=== PATIENT | female | born 1945 | race Caucasian/White ===

== ENCOUNTER 2019-11-10 17:31 | Inpatient (IN) ==
[2019-11-10] MEDS ORDERED: ASPIRIN CHEW 324 MG PO STA (17:56)
[2019-11-10] MEDS: NITROGLYCERIN SL 0.4 MG/TAB TAB SL PRN ×3 (18:04→18:35)
--- NOTE | 2019-11-10 18:05 | Emergency Department Note ---
History of Present Illness General Chief complaint: Chest Pain Stated complaint: CHEST PAIN Time Seen by Provider: 11/10/19 17:38 Source: patient Mode of arrival: ambulatory Limitations: no limitations History of Present Illness Maximum Pain Intensity: 6 This patient comes in as described above. She was placed in room B6. The nurses came and asked me to see her as she was having chest pain. The pain has gone down significantly is 5 out of 10 at present. She is had chest pain off and on for months although is been significantly worse since Tuesday night. She had a very bad 10 out of 10 chest pain her blood pressure was 194/122 at the time she took a clonidine an hour later blood pressure is 94/54 and she felt better. When states she felt washed out but otherwise good. She was at her doctor's office and [facility] with UTI type symptoms today and will start on antibiotic. Around 330 she was shopping and developed chest pain 9 out of 10 at 415 she took a clonidine she also took an Ativan. She was getting better when she drove here and almost incoming but started having chest pain again. She does feel short of breath. The pain feels like it is in her chest but radiates into throat ears and back. She does have shortness of breath with this as well and her symptoms seem to be worse with walking and better if she rests. No fever or COVID symptoms or exposure. No history of cardiac disease. No trauma or injury. She is not any blood thinners. She did take aspirin 160 mg prior to arrival Home Medications Home Medications Medication Instructions Recorded Confirmed Type clonidine HCl 0.1 mg PO BID 05/22/19 11/10/19 History hydrocodone-acetaminophen 0.5 - 1 tab PO BID PRN 05/22/19 11/10/19 History levothyroxine 25 mcg PO QAM 05/22/19 11/10/19 History lorazepam 1 mg PO TID PRN 05/22/19 11/10/19 History acyclovir 400 mg PO BID PRN 11/10/19 11/10/19 History azelastine 2 spray INTRANASAL BID 11/10/19 11/10/19 History ciprofloxacin HCl 250 mg PO BID 11/10/19 11/10/19 History ergocalciferol (vitamin D2) 50,000 unit PO 2XWK 11/10/19 11/10/19 History Allergies Allergy/AdvReac Type Severity Reaction Status Date / Time Iodinated Contrast Media Allergy Mild Hives Verified 11/10/19 18:25 iodine Allergy Mild Hives Verified 11/10/19 18:25 Past Med/Surg History Medical History History of Raynaud's syndrome Surgical History No pertinent past surgical history Social History Preferred Language: Sri Lankan Feels Safe at Home: Yes Smoking Status: Never smoker Review of Systems A total of 10 systems reviewed and were otherwise negative Physical Exam Vital Signs Vital Signs - 24 hr 11/10/19 17:32 11/10/19 18:00 11/10/19 18:10 Temperature 36.8 C Temperature Source Oral Pulse Rate 67 70 79 Pulse Rate from SpO2 Sensor 70 79 Respiratory Rate 18 18 18 Respiratory Effort / Characteristics Non-Labored Respiratory Depth Normal Blood Pressure 197/76 H 140/80 145/94 H Blood Pressure Mean 116 102 120 Pulse Oximetry 97 98 96 Oxygen Delivery Method Room Air Fraction of Inspired Oxygen Sepsis Recent Fever Within 48 Hours No Sepsis Action Taken by Nursing No Action Required 11/10/19 18:16 11/10/19 18:20 11/10/19 18:25 Temperature Temperature Source Pulse Rate 76 84 Pulse Rate from SpO2 Sensor 76 85 Respiratory Rate 19 18 Respiratory Effort / Characteristics Respiratory Depth Blood Pressure 129/76 119/67 Blood Pressure Mean 90 91 Pulse Oximetry 94 94 90 Oxygen Delivery Method Room Air Fraction of Inspired Oxygen 94 Sepsis Recent Fever Within 48 Hours Sepsis Action Taken by Nursing 11/10/19 18:30 11/10/19 18:35 11/10/19 18:40 Temperature Temperature Source Pulse Rate 77 76 84 Pulse Rate from SpO2 Sensor 77 75 84 Respiratory Rate 20 20 18 Respiratory Effort / Characteristics Respiratory Depth Blood Pressure 139/70 123/78 113/67 Blood Pressure Mean 83 104 81 Pulse Oximetry 93 92 89 L Oxygen Delivery Method Fraction of Inspired Oxygen Sepsis Recent Fever Within 48 Hours Sepsis Action Taken by Nursing 11/10/19 18:45 11/10/19 18:51 11/10/19 19:05 Temperature Temperature Source Pulse Rate 77 76 72 Pulse Rate from SpO2 Sensor 77 77 71 Respiratory Rate 18 18 18 Respiratory Effort / Characteristics Respiratory Depth Blood Pressure 125/68 141/77 H 136/83 Blood Pressure Mean 80 92 98 Pulse Oximetry 89 L 91 94 Oxygen Delivery Method Fraction of Inspired Oxygen Sepsis Recent Fever Within 48 Hours Sepsis Action Taken by Nursing 11/10/19 19:10 Temperature Temperature Source Pulse Rate 73 Pulse Rate from SpO2 Sensor 73 Respiratory Rate 18 Respiratory Effort / Characteristics Respiratory Depth Blood Pressure 123/66 Blood Pressure Mean 73 Pulse Oximetry 91 Oxygen Delivery Method Fraction of Inspired Oxygen Sepsis Recent Fever Within 48 Hours Sepsis Action Taken by Nursing General: Well developed well nourished older female who appears in no acute distress, breathing comfortably on room air. Normal speech HEENT: Normal cephalic atraumatic. Pupils are equal round and reactive to light. Extraocular movements are intact. Oropharynx is pink with moist mucous membranes. No swelling of the mouth lips or tongue. Neck: Supple with a midline trachea. No meningeal signs or stiffness, no JVD or bruits. No Stridor. Chest: Clear to auscultation bilaterally. No wheezes or rhonchi. No increased work of breathing. Not reproducibly tender Heart: Regular rate and rhythm without murmurs or gallops. Abdomen: Soft nontender, nondistended without rebound guarding or rigidity. Extremities: No cyanosis clubbing or edema. No calf tenderness or assymetry Spine/Back. Non tender to palpation. No CVA tenderness Skin: Good turgor without rashes. Neurologic exam: Cranial nerves two through 12 are intact. Motor and sensation are intact and symmetrical throughout. Course Administered Medications Nitroglycerin (Nitrostat) 0.4 mg SL UD PRN PRN Reason: Chest Pain Stop: 12/10/19 17:55 Last Admin: 11/10/19 18:35 Dose: 0.4 mg Documented by: [id number] Admin: 11/10/19 18:23 Dose: 0.4 mg Documented by: [id number] Admin: 11/10/19 18:04 Dose: 0.4 mg Documented by: [id number] Discontinued Medications Aspirin (Aspirin) 161 mg PO NOW STA Stop: 11/10/19 17:57 Last Admin: 11/10/19 18:05 Dose: 161 mg Documented by: [id number] Nitroglycerin (Nitro-Bid 2%) 1 inch EXT NOW ONE Stop: 11/10/19 19:18 Last Admin: 06/13/20 19:40 Dose: 1 inch Documented by: [id number] Potassium Chloride (Klor-Con M20) 40 meq PO NOW STA Stop: 11/10/19 19:36 Last Admin: 11/10/19 19:45 Dose: 40 meq Documented by: [id number] Critical Care Time Critical Care Time: Yes Total Critical Care Time: 30 Due to the patient's chest pain with EKG changes, need for frequent reassessment, multiple medications as well as repeat EKG and consultation, have personally spent greater than 30 minutes of critical care time in the direct management of this patient. This includes bedside care, interpretation of diagnostic studies, and testing, discussion with consultants, patient, and family members, and other required patient management activities. This 30 minutes is in excess of all separately billable procedures. Medical Decision Making Differential Diagnosis Acute coronary syndrome, arrhythmia, PE, musculoskeletal, anxiety, LA, sepsis, electrolyte or metabolic abnormality, aortic pathology Medical Records Attestation: I reviewed the patient's medical records. Home Medications Current Medication List: was personally reviewed by me Laboratory Data Attestation: I reviewed the patient's lab results. Result diagrams: 11/10/19 17:55 11/10/19 17:55 Lab Results 11/10/19 11/10/19 11/10/19 Range/Units 17:55 17:55 17:55 WBC 14.68 H (4.8-10.8) K/uL RBC 4.83 (4.2-5.4) M/uL Hgb 14.4 (12.0-16.0) g/dL Hct 42.5 (37-47) % MCV 88.0 (80-100) fL MCH 29.8 (25-34) pg MCHC 33.9 (32-36) g/dL RDW Std Deviation 45.6 (36.4-46.3) fL RDW Coeff of Neyda 14.2 (11.5-14.5) % Plt Count 228 (130-400) K/uL MPV 10.5 H (7.4-10.4) fL Immature Gran % (Auto) 0.3 % Neut % (Auto) 77.6 % Lymph % (Auto) 17.1 % [place] % (Auto) 4.6 % Eos % (Auto) 0.3 % Baso % (Auto) 0.1 % Immature Gran # (Auto) 0.05 H (0.00-0.02) K/uL Neut # (Auto) 11.38 H (1.4-6.5) K/uL Lymph # (Auto) 2.51 (1.2-3.4) K/uL [place] # (Auto) 0.67 H (0.11-0.59) K/uL Eos # (Auto) 0.05 (0-0.5) K/uL Baso # (Auto) 0.02 (0-0.2) K/uL PT 10.9 (9.0-12.0) Seconds INR 1.0 (0.9-1.1) APTT 27.6 (21.0-31.0) Seconds PTT Ratio 1.0 Sodium 141 (136-145) mmol/L Potassium 3.0 L (3.5-5.1) mmol/L Chloride 106 (98-107) mmol/L Carbon Dioxide 30 (21-32) mmol/L Anion Gap 5.0 (3-11) BUN 9 (7-18) mg/dl Creatinine 0.82 (0.6-1.2) mg/dl Est Cr Clr Drug Dosing Not Reportable Est GFR ( Amer) 81.7 Est GFR (Non-Af Amer) 70.5 BUN/Creatinine Ratio 10.7 (10-20) Glucose 95 (70-99) mg/dl Calcium 9.4 (8.5-10.1) mg/dl Magnesium (1.8-2.4) mg/dl Total Bilirubin 0.5 (0.2-1) mg/dl AST 18 (15-37) U/L ALT 27 (12-78) U/L Alkaline Phosphatase 119 H (45-117) U/L Troponin I < 0.015 (0-0.045) ng/ml Total Protein 8.6 H (6.4-8.2) gm/dl Albumin 4.1 (3.4-5.0) gm/dl Globulin 4.5 H (2.5-4.0) gm/dl Albumin/Globulin Ratio 0.9 (0.9-2) Lipase 88 (73-393) U/L 11/10/19 Range/Units 17:55 WBC (4.8-10.8) K/uL RBC (4.2-5.4) M/uL Hgb (12.0-16.0) g/dL Hct (37-47) % MCV (80-100) fL MCH (25-34) pg MCHC (32-36) g/dL RDW Std Deviation (36.4-46.3) fL RDW Coeff of Neyda (11.5-14.5) % Plt Count (130-400) K/uL MPV (7.4-10.4) fL Immature Gran % (Auto) % Neut % (Auto) % Lymph % (Auto) % [place] % (Auto) % Eos % (Auto) % Baso % (Auto) % Immature Gran # (Auto) (0.00-0.02) K/uL Neut # (Auto) (1.4-6.5) K/uL Lymph # (Auto) (1.2-3.4) K/uL [place] # (Auto) (0.11-0.59) K/uL Eos # (Auto) (0-0.5) K/uL Baso # (Auto) (0-0.2) K/uL PT (9.0-12.0) Seconds INR (0.9-1.1) APTT (21.0-31.0) Seconds PTT Ratio Sodium (136-145) mmol/L Potassium (3.5-5.1) mmol/L Chloride (98-107) mmol/L Carbon Dioxide (21-32) mmol/L Anion Gap (3-11) BUN (7-18) mg/dl Creatinine (0.6-1.2) mg/dl Est Cr Clr Drug Dosing Est GFR ( Amer) Est GFR (Non-Af Amer) BUN/Creatinine Ratio (10-20) Glucose (70-99) mg/dl Calcium (8.5-10.1) mg/dl Magnesium 2.0 (1.8-2.4) mg/dl Total Bilirubin (0.2-1) mg/dl AST (15-37) U/L ALT (12-78) U/L Alkaline Phosphatase (45-117) U/L Troponin I (0-0.045) ng/ml Total Protein (6.4-8.2) gm/dl Albumin (3.4-5.0) gm/dl Globulin (2.5-4.0) gm/dl Albumin/Globulin Ratio (0.9-2) Lipase (73-393) U/L Imaging Data Attestation: I personally reviewed and interpreted this imaging study as follows: My Impression: Chest x-ray, no acute infiltrate, failure, pneumothorax seen Radiologist's Impression: No acute findings on chest x-ray ECG Data Attestation: I personally reviewed and interpreted this ECG as follows: Indication: + chest pain Rate (beats per minute): 75 Rhythm: + normal sinus ECG Intervals/blocks: + Normal QRS, + Normal QT and + Normal MD ECG [place]: + Normal ECG ST segments: + ST depression (Anterolateral) ECG Findings: no Q waves and no PACs Comparison ECG Date: no prior available Blood Pressure Blood Pressure Findings: Elevated blood pressure MDM Narrative This patient comes in as scribed above she is been having intermittent chest pain. Upon her initial EKG she does have some ST depression mostly in V3 through V6. In light of this I went and saw her promptly. Her symptoms have been getting better. I did order additional aspirin to complete a 324 mg total. I did order nitro trial nitroglycerin as well. A full cardiac work-up was done including blood work EKGs and chest x-ray. I did attempt to obtain an EKG for comparison but there were no old EKGs in our computer system. The patient was given a sublingual nitro and her pressure did come down to the 130s and her pain came down to 3 out of 10 she seemed to tolerate it well and was given a second nitroglycerin. He also obtained a second EKG to ensure that there is no ev olution of her symptoms. Her second EKG shows resolution of ST depression but she does have T wave inversions in V2 and V3. She was feeling significantly better and did receive a third nitroglycerin as her pain had only come down to 2 out of 10. She has no acute electrolyte or metabolic abnormalities. Chest x- ray was unremarkable does not show any congestive heart failure, pneumonia, or pneumothorax. After third nitroglycerin her pain was minimal up to about a 1 out of 10. She was placed on nitroglycerin 1 inch topical. her vital signs are stable. Her troponin was negative initially. I talked to her at length and I am concerned that she has multiple cardiac risk factors and does have the dynamic EKG changes and I do think needs to come into the hospital for further cardiac evaluation and work-up. She does agree. I have consulted Dr. Morrell in the [facility] team to see her in the ER for these measures. Continuous cardiac monitoring. Due to the patient's complaint of chest pain, she was placed on a continuous youth nutritional monitor. Her initial rhythm was normal sinus rhythm with a rate of 70. Impression & Plan Chest pain, Angina pectoris, unstable, Acute electrocardiogram changes, HTN (hypertension) Discharge Plan Visit Data Chief Complaint: Chest Pain Stated Complaint: CHEST PAIN ED Provider: Dada Dong Discharge Problem: Chest pain, Angina pectoris, unstable, Acute electrocardiogram changes, HTN (hypertension) Forms Stand Alone Forms: [facility] [employer] Prescriptions Prescriptions: No Action clonidine HCl 0.1 mg tablet 0.1 mg PO BID RF: 0 hydrocodone-acetaminophen 10-325 mg tablet 0.5 - 1 tab PO BID PRN (Reason: Pain) RF: 0 levothyroxine 25 mcg tablet 25 mcg PO QAM RF: 0 lorazepam 1 mg tablet 1 mg PO TID PRN (Reason: Anxiety) RF: 0 ciprofloxacin HCl 250 mg tablet 250 mg PO BID RF: 0 acyclovir 400 mg tablet 400 mg PO BID PRN (Reason: Cold Sore(s)) RF: 0 ergocalciferol (vitamin D2) 1,250 mcg (50,000 unit) capsule 50,000 unit PO 2XWK RF: 0 azelastine 137 mcg (0.1 %) Aerosol,Exline 2 spray INTRANASAL BID RF: 0 Discharge Problem: Chest pain Qualifiers: Chest pain type: precordial pain Qualified Code(s): R07.2 - Precordial pain HTN (hypertension) Qualifiers: Hypertension type: unspecified Qualified Code(s): I10 - Essential (primary) hypertension
[2019-11-10 18:09] LABS: Basophils # (auto) 0.02 K/uL (0-0.2); Basophils % (auto) 0.1 %; Eosinophils # (auto) 0.05 K/uL (0-0.5); Eosinophils % (auto) 0.3 %; Hematocrit (blood only) 42.5 % (37-47); Hemoglobin 14.4 g/dL (12.0-16.0); Immature Granulocytes # (auto) 0.05 K/uL (0.00-0.02); Immature Granulocytes % (auto) 0.3 %; Lymphocytes # (auto) 2.51 K/uL (1.2-3.4); Lymphocytes % (auto) 17.1 %; Mean Corpuscular Hemoglobin 29.8 pg (25-34); Mean Corpuscular Hgb Conc 33.9 g/dL (32-36); Mean Platelet Volume 10.5 fL (7.4-10.4); Monocytes # (auto) 0.67 K/uL (0.11-0.59); Monocytes % (auto) 4.6 %; Neutrophils # (auto) 11.38 K/uL (1.4-6.5); Neutrophils % (auto) 77.6 %; Platelet Count 228 K/uL (130-400); RDW Coefficient of Variation 14.2 % (11.5-14.5); RDW Standard Deviation 45.6 fL (36.4-46.3); Red Blood Count 4.83 M/uL (4.2-5.4); White Blood Count 14.68 K/uL (4.8-10.8)
[2019-11-10 18:25] LABS: Partial Thromboplastin Time 27.6 Seconds (21.0-31.0); Prothrombin Time 10.9 Seconds (9.0-12.0)
--- NOTE | 2019-11-10 18:25 | XRay Report ---
XR chest 1V portable CLINICAL HISTORY: Chest Pain COMPARISON STUDY: Chest radiograph May 19, 2015. FINDINGS: Lung volumes are normal. Lungs are clear. There is no pneumothorax or pleural effusion. Car diac size is normal. Mediastinal contours are normal. There is no evidence for pulmonary edema. IMPRESSION: No acute cardiopulmonary findings. ACT 112: Negative or not required by law. Electronically signed by: Damien Palomino M.D. 11/10/2019 6:24 PM
[2019-11-10 18:26] LABS: Alanine Aminotransferase 27 U/L (12-78); Albumin Level 4.1 gm/dl (3.4-5.0); Aspartate Aminotransferase 18 U/L (15-37); BUN Creatinine Ratio 10.7 (10-20); Blood Urea Nitrogen 9 mg/dl (7-18); Calcium 9.4 mg/dl (8.5-10.1); Carbon Dioxide 30 mmol/L (21-32); Chloride 106 mmol/L (98-107); Est GFR (African American) 81.7; Est GFR (Non-African American) 70.5; Glucose 95 mg/dl (70-99); Lipase 88 U/L (73-393); Sodium 141 mmol/L (136-145)
[2019-11-10 18:31] LABS: Albumin Globulin Ratio 0.9 (0.9-2); Alkaline Phosphatase 119 U/L (45-117); Bilirubin,Total 0.5 mg/dl (0.2-1); Globulin 4.5 gm/dl (2.5-4.0); Total Protein 8.6 gm/dl (6.4-8.2); Troponin I < 0.015 ng/ml (0-0.045)
[2019-11-10] MEDS ORDERED: NITROGLYCERIN 2% OINTMENT 30GM TUBE EXT ONE (19:17)
[2019-11-10] MEDS ORDERED: POTASSIUM CHLORIDE 20 MEQ TABCR PO STA ×2 (19:35→22:10)
[2019-11-10] MEDS ORDERED: HYDROCODONE/ACETAMINOPHEN 10/325 TAB PO PRN (21:26)
[2019-11-10] MEDS ORDERED: cloNIDine HCL 0.1 MG TAB PO SCH (21:26)
--- NOTE | 2019-11-10 21:32 | History & Physical Report ---
Date of Service November 10, 2019 Assessment & Plan (1) Chest pain: Pt is a 74yo female with a PMHx of HTN, HLD currently not on statin, hypothyroidism and fibromyalgia who presents with unstable angina. Unstable Angina -Pt presented with recurrent chest pain, 10/10 with associated chest tightness responsive to nitro -EKG in ED with ST depressions, trops negative -pt with significant fam hx, personal Hx of HTN, HLD -lipid panel and hgbA1c pending with AM labs -will order baseline echo, consider stress echo -cardiology consult -s/p aspirin 325mg administration in the ED -continue home clonidine, consider transitioning a beta-keeley such as metoprolol succinate or carvedilol -continue nitropaste scheduled with BP parameters -started on heparin standard concentration, not to exceed 5000 bolus HTN -BPs significantly elevated on ED arrival -continue home clonidine 0.1mg PO BID scheduled -consider transitioning to a beta-keeley such as metoprolol succinate or carvedilol as above HLD -Pt states she has been on many statins, all discontinued due to severe leg cramps -willing to try once more -notes significant improvement with rosuvastatin in the past UTI -continue home cipro 250mg po BID -pt states this was prescribed day of admission and she has not yet taken her first dose GERD/Hx of ulcers -Pepcid 40mg PO BID Fibromyalgia -continue home Platter 0.5 tab BID as needed Hypothyroidism -continue home levothyroxine 25mcg po qAM Seasonal Allergies -continue home azelastine nasal spray FEN/GI: Heart healthy DVT prophylaxis: On heparin CODE STATUS: Full Dispo: PCU/Tele Admission and Anticipated Discharge Date Admission Date: November 10, 2019 History of Present Illness Primary Care Provider: Ector Brownlee MD Pt is a 74yo female with a PMHx of HTN, HLD currently not on statin, hypothyroidism and fibromyalgia who presents with 10/10 chest pain responsive to nitro administration. States this has been happening for the past week, off and on. Describes the pain as both pressure-like and sharp. Radiates up her neck to her jaw and ears and to her back. Some SOB/chest tightness. No associated N/V or diaphoresis. Had an episode of significant chest pain 5 days ago after carrying grocery bags up to the second floor where she lives. Noted a BP of 194/112, took some clonidine and it decreased to 94/54. Called her PCP and wa able to get an appt with cutting machine fixer Dr. Hood for November 25 for a stress test. Also, notes today 8/10 pain while walking after a doctors appointment for a UTI, at [facility]. She then sat in her car, ate chicken, sushi and drank iced tea but it did not help. She then took a Platter, a dose of Ativan, 2 baby aspirins and her clonidine, all with no relief. So she came to the ED where the pain increased in intensity once more on arrival. Associated with a headache. FAM Hx: -HTN in brother, aunts and uncles espeically on maternal side -CA in mother and brothers. Mother had open heart surgery at age 52. -Diabetes in 2 brothers SH: -smoked for about 10 years early in her life, 1/2ppd at her heaviest. Stopped in 1973. social alcohol use, no recreational drug use. Rarely exercises and diet "is not the best. No kitchen for 6 years". Allergies Allergy/AdvReac Type Severity Reaction Status Date / Time Iodinated Contrast Media Allergy Mild Hives Verified 11/10/19 18:25 iodine Allergy Mild Hives Verified 11/10/19 18:25 Home Medications Home Medications Medication Instructions Recorded Confirmed Type clonidine HCl 0.1 mg PO BID 05/22/19 11/10/19 History hydrocodone-acetaminophen 0.5 - 1 tab PO BID PRN 05/22/19 11/10/19 History levothyroxine 25 mcg PO QAM 05/22/19 11/10/19 History lorazepam 1 mg PO TID PRN 05/22/19 11/10/19 History acyclovir 400 mg PO BID PRN 11/10/19 11/10/19 History azelastine 2 spray INTRANASAL BID 11/10/19 11/10/19 History ciprofloxacin HCl 250 mg PO BID 11/10/19 11/10/19 History ergocalciferol (vitamin D2) 50,000 unit PO 2XWK 11/10/19 11/10/19 History Past Med/Surg History Medical History History of Raynaud's syndrome Surgical History No pertinent past surgical history Social History Preferred Language: Belarusian Beliefs That Will Affect Care: None Current Living Situation: Alone Feels Safe at Home: Yes Safety Concerns: Feels Safe At This Time Smoking Status: Former smoker Do You Dip or Chew Tobacco: No ; Hx Alcohol Use: Yes Hx Substance Use: No Review of Systems Constitutional: + fatigue; no fever, no chills and no sweats Eyes: no worsening vision Ear, Nose, Mouth, Throat: + ear pain; no tinnitus, no dizziness, no nasal congestion and no sore throat Respiratory: no cough and no dyspnea Cardiovascular: no chest pain, no dyspnea, no palpitations, no lightheadedness and no syncope Gastrointestinal: no nausea, no vomiting, no constipation and no diarrhea/loose stools Genitourinary: + dysuria (not currently but earlier in the day); no hematuria Musculoskeletal: no body aches Integumentary: no rash Neurologic: + headache(s); no tingling, no numbness and no confusion Psychiatric: no confusion Endocrine: + fatigue Physical Exam Physical Exam: General: Alert, oriented. No acute distress Skin: No noted rashes or bruises Psych: Appropriate mood and affect Neuro: No gross deficits HEENT: NC/AT Chest: Nontender to palpation. CV: RRR, Normal s1, s2. No murmurs appreciated Resp: Breath sounds clear bilaterally, no increased effort of breathing. No crackles/rhonchi/rales. Abdomen: BS+. Soft, nontender, nondistended. No guarding. No organomegaly appreciated. Extremities: No edema in lower extremities bilaterally. Results & Data Results & Data ([facility]) Vital Signs (Past 12 Hours) Vital Signs Temp Pulse Resp BP Pulse Ox 11/10/19 21:01 68 19 107/81 93 11/10/19 20:15 66 19 146/76 H 96 11/10/19 19:45 70 18 120/72 94 11/10/19 19:30 70 19 139/85 94 11/10/19 19:25 74 18 124/74 94 11/10/19 19:10 73 18 123/66 91 11/10/19 19:05 72 18 136/83 94 11/10/19 18:51 76 18 141/77 H 91 11/10/19 18:45 77 18 125/68 89 L 11/10/19 18:40 84 18 113/67 89 L 11/10/19 18:35 76 20 123/78 92 11/10/19 18:30 77 20 139/70 93 11/10/19 18:25 84 18 119/67 90 11/10/19 18:20 76 19 129/76 94 11/10/19 18:16 94 11/10/19 18:10 79 18 145/94 H 96 11/10/19 18:00 70 18 140/80 98 11/10/19 17:32 36.8 C 67 18 197/76 H 97 Supervising Physician Co-Signing Physician Notes Attending addendum: I have physically seen this patient, have supervised the medical residents activities, and agree with the H&P unless as otherwise noted. Assessment and Plan: Unstable angina/hypertension Telemetry admission Multiple risk factors: Family history, hypertension, hyperlipidemia, obesity, sedentary lifestyle. Aspirin 81 mg daily, given loading dose of 325 in the ED. Change clonidine to metoprolol tartrate 25 mg p.o. twice daily. Nitropaste 1 inch anterior chest wall every 6 hours Heparin drip standard concentration with bolus not to exceed 5000 Took a fasting lipid panel and hemoglobin A1c Cardiology consult UTI- noted in outpatient setting, was to begin treatment today. Continue Cipro. GERD/history of peptic ulcer disease- Placed on Pepcid. Remaining orders and notations as noted. Resident Activity Tracking Resident Involvement: Resident Care Provided Care Provided: Adult Hospital Medicine (1) Chest pain Chest pain type: precordial pain Qualified Code(s): R07.2 - Precordial pain
[2019-11-10] MEDS ORDERED: Heparin IV Low Dose WITH Bolus IV SCH (21:56)
[2019-11-10] MEDS ORDERED: HEPARIN SODIUM/DEXTROSE 25,000 UNITS/500 ML BAG IV SCH (22:00)
[2019-11-10] MEDS ORDERED: HEPARIN IV BOLUS 4,000 UNITS in SYRINGE 0 ML IV ONE (22:15)
[2019-11-10] MEDS: CIPROFLOXACIN 250 MG TAB PO SCH (22:38)
[2019-11-10] MEDS: METOPROLOL TARTRATE 25 MG TAB PO SCH (23:01)
[2019-11-10] MEDS: NITROGLYCERIN 2% OINTMENT 30GM TUBE EXT SCH (23:06)
[2019-11-10] MEDS: AZELASTINE~ORDER AWAITING ACTION SCH (23:08)
[2019-11-11] MEDS: PHENAZOPYRIDINE HCL 200 MG TAB PO PRN ×2 (00:12→08:16)
[2019-11-11 05:04] LABS: Partial Thromboplastin Time 54.9 Seconds (21.0-31.0)
[2019-11-11] MEDS: NITROGLYCERIN 2% OINTMENT 30GM TUBE EXT SCH ×4 (06:23→23:27)
[2019-11-11] MEDS: LEVOTHYROXINE SODIUM 25 MCG TABLET PO SCH (06:24)
[2019-11-11 07:42] LABS: Basophils # (auto) 0.03 K/uL (0-0.2); Basophils % (auto) 0.3 %; Eosinophils # (auto) 0.14 K/uL (0-0.5); Eosinophils % (auto) 1.5 %; Hematocrit (blood only) 39.4 % (37-47); Immature Granulocytes # (auto) 0.02 K/uL (0.00-0.02); Immature Granulocytes % (auto) 0.2 %; Lymphocytes # (auto) 3.21 K/uL (1.2-3.4); Lymphocytes % (auto) 35.4 %; Mean Corpuscular Volume 87.9 fL (80-100); Mean Platelet Volume 10.7 fL (7.4-10.4); Monocytes # (auto) 0.67 K/uL (0.11-0.59); Monocytes % (auto) 7.4 %; Neutrophils % (auto) 55.2 %; Platelet Count 211 K/uL (130-400); RDW Coefficient of Variation 14.5 % (11.5-14.5); RDW Standard Deviation 46.3 fL (36.4-46.3); Red Blood Count 4.48 M/uL (4.2-5.4); White Blood Count 9.07 K/uL (4.8-10.8)
[2019-11-11 08:06] LABS: Calcium 9.1 mg/dl (8.5-10.1); Creatinine Clr Calc Pharmacy 84.3 ml/min; Est GFR (African American) 103.5; Est GFR (Non-African American) 89.3; Potassium 4.2 mmol/L (3.5-5.1); Troponin I 0.035 ng/ml (0-0.045)
[2019-11-11] MEDS: METOPROLOL TARTRATE 25 MG TAB PO SCH ×3 (08:15→21:20)
[2019-11-11] MEDS: FAMOTIDINE 40 MG TABLET PO SCH ×2 (08:16→21:19)
[2019-11-11] MEDS: CIPROFLOXACIN 250 MG TAB PO SCH ×2 (08:16→21:19)
[2019-11-11] MEDS: AZELASTINE~ORDER AWAITING ACTION SCH (09:08)
[2019-11-11] MEDS ORDERED: PERFLUTREN LIPID MICROSPHERE (DEFINITY) IV ONE (09:25)
--- NOTE | 2019-11-11 10:13 | Electrocardiogram Report ---
Test Reason : Blood Pressure : / mmHG Vent. Rate : 075 BPM Atrial Rate : 075 BPM P-R Int : 204 ms QRS Dur : 082 ms QT Int : 406 ms P-R-T Axes : 072 009 063 degrees QTc Int : 453 ms Normal sinus rhythm ST depression, consider subendocardial injury c/w anterolateral ischemia Abnormal ECG No previous ECGs available Confirmed by Sabas Harley ([id number]) on 11/11/2019 10:12:48 AM Referred By: REFERRED SELF Confirmed By:Sabas Harley
--- NOTE | 2019-11-11 10:23 | Electrocardiogram Report ---
Test Reason : Blood Pressure : / mmHG Vent. Rate : 075 BPM Atrial Rate : 075 BPM P-R Int : 208 ms QRS Dur : 082 ms QT Int : 400 ms P-R-T Axes : 069 017 035 degrees QTc Int : 446 ms Normal sinus rhythm Abnormal ECG When compared with ECG of 10-NOV-2019 17:39, (unconfirmed) Nonspecific T wave abnormality, worse in Inferior leads The dynamic anterolateral ST changes have improved Confirmed by Sabas Harley ([id number]) on 11/11/2019 10:23:05 AM Referred By: REFERRED SELF Confirmed By:Sabas Harley
[2019-11-11] MEDS ORDERED: LORazepam 0.5 MG TAB PO PRN (12:46)
--- NOTE | 2019-11-11 13:24 | Cardiology Consultation ---
Date of Consultation The history is obtained from the patient. She notes progressive chest tightness and chest pressure with radiation into her neck and her jaw and between her shoulder blades with activity. She notes in the last week it has become progressively worse. It also sounds like there is a component of subconsciously reducing her level of activity in order to avoid symptoms. She notes she lives on the second floor and if she has to carry the groceries up the stairs she has her typical symptoms. Yesterday's episode occurred after walking in the grocery store than having to go back to the store having parked far away to use the bathroom urgently. She sat in her car for an extended period of time she took clonidine and Ativan without any improvement in her symptoms for about an hour. She came to the emergency room her symptoms had improved but not resolved and she actually thought about going home. Just walking to the ER she had worsening symptoms and decided to stay. Her baseline EKG shows significant ST depression in the anterior lateral leads of approximately 2-1/2 mm. With treatment of her symptoms in the ER her ST segments improve although do not completely resolve. Her troponin is borderline. She has a very significant family history of premature heart disease on her mom's side along with her brothers they have all had heart disease disease and heart attacks in their 40s and 50s. They all have significant premature hypertension. She has never had a history of heart attack or stroke. She has had high blood pressure. It is unclear why she was prescribed clonidine without the use of any other antihypertensives first. She notes she had stopped her clonidine and restarted it 2 months ago when she noticed that her blood pressures were higher. The rest of a complete review of systems is otherwise negative November 11, 2019 Assessment & Plan (1) Chest pain: Pt is a 74yo female with a PMHx of HTN, HLD currently not on statin, hypothyroidism and fibromyalgia who presents with unstable angina. Unstable Angina -I discussed with her the idea of anginal symptoms with regards to supply and demand. I reviewed her EKGs with her suggesting dynamic ST changes. In light of this I recommended a cardiac catheterization to define her coronary anatomy. I discussed the risks and benefits of cardiac catheterization risks include but are not limited to bleeding, infection or damage to the puncture site. One in the thousand risk of heart attack, stroke or dying with the procedure. Risk of contrast-induced nephropathy and allergic reaction to contrast were discussed with the patient. The patient understands the risks and wishes to proceed. The patient does have a dye allergy. She received 50 mg of Benadryl x3 doses, she will remain on her Pepcid, she received 50 mg of prednisone x3 doses prior to the procedure. I would reduce her metoprolol to 12-1/2 mg twice daily given her relative bradycardia. She is on aspirin. She has been intolerant of statins as an outpatient due to worsening myalgias. She is unsure whether she is been on pravastatin which is the best tolerated. We will try 10 mg along with coenzyme Q 10. If she remains statin intolerant we can try Zetia. I did discuss with her that many patients with statin myalgias will have myalgias related to Zetia. If that is the case we would need to consider PCSK9 inhibitors. She should remain on her heparin drip. I would continue with nitroglycerin paste and not give her oral isosorbide mono nitrate or isosorbide dinitrate. I made her n.p.o. after midnight in anticipation of catheterization tomorrow. As long she remained stable and relatively pain-free as she is now currently pain-free this can be done as an elective procedure tomorrow. Long-term I discussed with her she can dissipate being on aspirin, Plavix, metoprolol, possibly an angiotensin receptor keeley, and pravastatin. All of her questions were answered in detail. I did discuss with her that based on the catheterization we will make 1 of 3 recommendations other medical therapy, angioplasty and stenting, or if she has significant left main or triple-vessel disease the need for elective bypass surgery. HTN -See above HLD See above GERD/Hx of ulcers -Pepcid 40mg PO BID History of Present Illness Attending Physician: Patel Fuller MD Allergies Allergy/AdvReac Type Severity Reaction Status Date / Time Iodinated Contrast Media Allergy Mild Hives Verified 11/10/19 18:25 iodine Allergy Mild Hives Verified 11/10/19 18:25 Home Medications Home Medications Medication Instructions Recorded Confirmed Type clonidine HCl 0.1 mg PO BID 05/22/19 11/10/19 History hydrocodone-acetaminophen 0.5 - 1 tab PO BID PRN 05/22/19 11/10/19 History levothyroxine 25 mcg PO QAM 05/22/19 11/10/19 History lorazepam 1 mg PO TID PRN 05/22/19 11/10/19 History acyclovir 400 mg PO BID PRN 11/10/19 11/10/19 History azelastine 2 spray INTRANASAL BID 11/10/19 11/10/19 History ciprofloxacin HCl 250 mg PO BID 11/10/19 11/10/19 History ergocalciferol (vitamin D2) 50,000 unit PO 2XWK 11/10/19 11/10/19 History Patient History Medical History History of Raynaud's syndrome Surgical History No pertinent past surgical history Social History Preferred Language: Georgian Beliefs That Will Affect Care: None Current Living Situation: Alone Feels Safe at Home: Yes Safety Concerns: Feels Safe At This Time Smoking Status: Former smoker Do You Dip or Chew Tobacco: No ; Hx Alcohol Use: Yes Hx Substance Use: No Results & Data ([facility]) Vital Signs (Past 12 Hours) Vital Signs Temp Pulse Resp BP BP Pulse Ox 11/11/19 11:48 36.9 C 52 L 19 124/72 94 11/11/19 08:10 36.7 C 50 L 18 129/79 92 11/11/19 04:01 36.6 C 45 L 18 119/66 94 She is awake alert and oriented x3 she is in no acute distress she is anxious. HEENT: 2+ carotid upstrokes, no evidence of carotid bruits, jugular venous pressure was normal. Sclera was anicteric. Hearing was normal .Lungs: Clear to auscultation bilaterally no rales rhonchi wheezing Heart: regular rate and rhythm no appreciable murmurs rubs or gallops Abdomen: soft nontender nondistended positive bowel sounds Extremities: no clubbing cyanosis or edema Psychiatric: Her affect appeared appropriate although she was anxious next Neuro: She is awake alert and oriented x3 (1) Chest pain Chest pain type: precordial pain Qualified Code(s): R07.2 - Precordial pain
[2019-11-11] MEDS: predniSONE 50 MG TAB PO SCH ×2 (13:31→21:19)
[2019-11-11] MEDS: LORazepam 1 MG TAB PO PRN (13:36)
[2019-11-11] MEDS ORDERED: Heparin IV Standard *NO* Bolus IV SCH (13:56)
--- NOTE | 2019-11-11 14:02 | Hospitalist Progress Note ---
Date of Service November 11, 2019 Assessment & Plan (1) Angina pectoris, unstable: Seen by cardiology who feel this is very concerning for unstable angina. - Continue heparin gtt - Continue ASA, beta-keeley, Nitro-paste - Start pravastatin with CoQ10 - NPO @ midnight for planned catheterization tomorrow (treating for dye allergy) (2) HTN (hypertension): Patient uses a very odd regimen of clonidine 0.1 mg PO PRN. She doesn't actually take it BID, but mostly if she checks her BP and it is elevated. Has been on this regimen for multiple years. This is not beneficial for her, as her BP runs as high as 190/105, she takes clonidine, then it drops to as low as 95/50. We discussed that this is not a typical or recommended HTN regimen, and she should stop the clonidine in favor of better HTN regimen on discharge. - Hold clonidine - BP is 130/75 today. - Continue beta-keeley - Consider ACEi/ARB depending on cath findings (3) UTI (urinary tract infection): PCP started her on Cipro for UTI symptoms. Had not even taken first dose prior to coming to the ER. - Continue Cipro x 3 days for UTI (Last dose: 11/12 morning dose) (4) Hypothyroidism: No TSH in files. - Check TSH tomorrow - Continue home Synthroid 25 mcg daily Admission and Anticipated Discharge Date Admission Date: November 10, 2019 Subjective No further chest pain today. Reports no fevers/chills, chest pain, shortness of breath, abdominal pain, nausea, or vomiting. Physical Exam Constitutional: WD/WN, vitals as above Eyes: EOM intact bilaterally; no conjunctival abnormality ENMT: external ear and nose normal, oropharynx normal Neck: trachea midline, no thyromegaly normal visual inspection Respiratory: normal respiratory effort, lungs clear to auscultation no respiratory distress Cardiovascular: RRR, no murmur, no edema Gastrointestinal (Abdomen): Inspection/Auscultation: abdomen normal to inspection; abdomen not distended Musculoskeletal: no cyanosis or clubbing, extremities motor strength 5/5 Skin: no rashes, warm and dry Neurologic: moves all extremities and awake Psychiatric: Orientation: alert, oriented to person and cooperative Results & Data Results & Data ([facility]) Vital Signs (Past 12 Hours) Vital Signs Temp Pulse Resp BP BP Pulse Ox 11/11/19 13:29 59 L 132/74 11/11/19 11:48 36.9 C 52 L 19 124/72 94 11/11/19 08:10 36.7 C 50 L 18 129/79 92 11/11/19 04:01 36.6 C 45 L 18 119/66 94 PG Care Time/CCT Total # of Minutes Spent Total Time Spent with Patient: Total time spent is greater than 50% in coordination of care (as documented) at patient's floor/unit and/or counseling patient: Coding Level of Care Code 33091 Subseq Hosp Care Lvl 3 Diagnoses Angina pectoris, unstable I20.0 HTN (hypertension) I10 Hypertension type: unspecified UTI (urinary tract infection) N39.0 Hypothyroidism E03.9 (1) HTN (hypertension) Hypertension type: unspecified Qualified Code(s): I10 - Essential (primary) hypertension
[2019-11-11 16:17] LABS: Partial Thromboplastin Time 29.1 Seconds (21.0-31.0)
[2019-11-11] MEDS: HEPARIN SODIUM/DEXTROSE 25,000 UNITS/500 ML BAG IV SCH (16:37)
[2019-11-11] MEDS ORDERED: PRAVASTATIN SOD 10 MG TAB PO SCH (17:00)
--- NOTE | 2019-11-11 19:15 | Billing Data ---
Date of Service November 11, 2019 Coding Level of Care Code 30117 Initial Inpt Care Lvl 3
[2019-11-11 22:53] LABS: Partial Thromboplastin Ratio 2.6
[2019-11-11 22:57] LABS: Partial Thromboplastin Time 73.2 Seconds (21.0-31.0)
[2019-11-11] MEDS ORDERED: ACETAMINOPHEN 325 MG TAB PO PRN (23:58)
[2019-11-12] MEDS: NITROGLYCERIN 2% OINTMENT 30GM TUBE EXT SCH ×2 (03:51→11:57)
[2019-11-12] MEDS: LORazepam 1 MG TAB PO PRN ×2 (03:59→09:02)
[2019-11-12] MEDS: LEVOTHYROXINE SODIUM 25 MCG TABLET PO SCH (03:59)
[2019-11-12 05:52] LABS: Basophils # (auto) 0.01 K/uL (0-0.2); Basophils % (auto) 0.1 %; Hemoglobin 13.7 g/dL (12.0-16.0); Immature Granulocytes # (auto) 0.04 K/uL (0.00-0.02); Immature Granulocytes % (auto) 0.4 %; Lymphocytes # (auto) 1.24 K/uL (1.2-3.4); Lymphocytes % (auto) 12.7 %; Mean Corpuscular Hemoglobin 29.1 pg (25-34); Mean Corpuscular Hgb Conc 32.6 g/dL (32-36); Mean Corpuscular Volume 89.2 fL (80-100); Mean Platelet Volume 10.6 fL (7.4-10.4); Monocytes # (auto) 0.14 K/uL (0.11-0.59); Monocytes % (auto) 1.4 %; Neutrophils # (auto) 8.34 K/uL (1.4-6.5); Neutrophils % (auto) 85.4 %; Platelet Count 238 K/uL (130-400); RDW Coefficient of Variation 14.3 % (11.5-14.5); Red Blood Count 4.71 M/uL (4.2-5.4); White Blood Count 9.77 K/uL (4.8-10.8)
[2019-11-12 06:17] LABS: Partial Thromboplastin Time 83.2 Seconds (21.0-31.0)
[2019-11-12 06:35] LABS: Estimated Average Glucose 128 mg/dl; Hemoglobin A1C 6.1 % (4.5-5.6)
[2019-11-12 06:46] LABS: BUN Creatinine Ratio 14.8 (10-20); Calcium 9.4 mg/dl (8.5-10.1); Creatinine Clr Calc Pharmacy 64.6 ml/min; Est GFR (African American) 84.2; Est GFR (Non-African American) 72.6; Potassium 3.9 mmol/L (3.5-5.1)
[2019-11-12 06:56] LABS: Thyroid Stimulating Hormone 0.299 uIu/ml (0.300-4.500)
[2019-11-12 07:08] LABS: T4 Free Thyroxine 1.09 ng/dl (0.8-1.6)
--- NOTE | 2019-11-12 08:53 | Cardiology Progress Note ---
Date of Service November 12, 2019 Subjective CP last evening with NTG paste off. Pain free this am. anxious. Cath today. No SOB or palps. Hasn't slept well. Results & Data Vital Signs (Past 12 Hours) Vital Signs Temp Pulse Pulse Resp BP Pulse Ox 11/12/19 07:20 36.9 C 50 L 19 160/77 H 92 11/12/19 04:31 153/72 H 11/12/19 03:44 36.3 C L 56 L 19 184/75 H 92 11/12/19 00:00 47 L 11/11/19 23:50 37.0 C 54 L 18 154/77 H 92 She is awake alert and oriented x3 she is in no acute distress she is anxious. HEENT: 2+ carotid upstrokes, no evidence of carotid bruits, jugular venous pressure was normal. Sclera was anicteric. Hearing was normal .Lungs: Clear to auscultation bilaterally no rales rhonchi wheezing Heart: regular rate and rhythm no appreciable murmurs rubs or gallops Abdomen: soft nontender nondistended positive bowel sounds Extremities: no clubbing cyanosis or edema Psychiatric: Her affect appeared appropriate although she was anxious Assessment & Plan (1) Chest pain: Pt is a 74yo female with a PMHx of HTN, HLD currently not on statin, hypothyroidism and fibromyalgia who presents with unstable angina. Unstable Angina -I discussed with her the idea of anginal symptoms with regards to supply and demand. I reviewed her EKGs with her suggesting dynamic ST changes. In light of this I recommended a cardiac catheterization to define her coronary anatomy. I discussed the risks and benefits of cardiac catheterization risks include but are not limited to bleeding, infection or damage to the puncture site. One in the thousand risk of heart attack, stroke or dying with the procedure. Risk of contrast-induced nephropathy and allergic reaction to contrast were discussed with the patient. The patient understands the risks and wishes to proceed. The patient does have a dye allergy. She received 50 mg of Benadryl x3 doses, she will remain on her Pepcid, she received 50 mg of prednisone x3 doses prior to the procedure. I would reduce her metoprolol to 12-1/2 mg twice daily given her relative bradycardia. She is on aspirin. She has been intolerant of statins as an outpatient due to worsening myalgias. She is unsure whether she is been on pravastatin which is the best tolerated. We will try 10 mg along with coenzyme Q 10. If she remains statin intolerant we can try Zetia. I did discuss with her that many patients with statin myalgias will have myalgias related to Zetia. If that is the case we would need to consider PCSK9 inhibitors. She should remain on her heparin drip. All of her questions were answered in detail. I did discuss with her that based on the catheterization we will make 1 of 3 recommendations other medical therapy, angioplasty and stenting, or if she has significant left main or triple-vessel disease the need for elective bypass surgery. Plan to add ARB once coronary anatomy is known given HTN. (2) Normal LV fxn (3) Hyperlipidemia (4) Very strong Family Hx premature CAD (5) HTN
[2019-11-12] MEDS: CIPROFLOXACIN 250 MG TAB PO SCH ×2 (09:03→22:55)
[2019-11-12] MEDS: ASPIRIN 81 MG ECTAB PO SCH (09:03)
[2019-11-12] MEDS: predniSONE 50 MG TAB PO SCH (09:03)
[2019-11-12] MEDS: FAMOTIDINE 40 MG TABLET PO SCH ×2 (09:03→22:55)
[2019-11-12] MEDS: METOPROLOL TARTRATE 25 MG TAB PO SCH ×2 (09:04→22:55)
--- NOTE | 2019-11-12 11:42 | Hospitalist Progress Note ---
Date of Service November 12, 2019 Assessment & Plan (1) Chest pain: Pt is a 74yo female with a PMHx of HTN, HLD currently not on statin, hypothyroidism and fibromyalgia who presents with unstable angina. Unstable Angina -Patient continues to have anginal symptoms. Will have cardiac cath later today. -continue statin. continue heparin drip (2) HTN (hypertension): hold clonidine. - BP at goal. - Continue beta-keeley - Consider ACEi/ARB depending on cath findings (3) UTI (urinary tract infection): PCP started her on Cipro for UTI symptoms. Had not even taken first dose prior to coming to the ER. - Continue Cipro x 3 days for UTI (Last dose: 11/12 morning dose) (4) Hypothyroidism: - Check TSH is low. - Continue home Synthroid 25 mcg daily, will likely need to titrate down. Admission and Anticipated Discharge Date Admission Date: November 10, 2019 Subjective She reports feeling well. She states she did have chest pain overnight. Review of Systems Review of Systems: All systems reviewed & are unremarkable except as noted in HPI & below Physical Exam Physical Exam: Constitutional: WD/WN, vitals as above Eyes: EOM intact bilaterally; no conjunctival abnormality ENMT: external ear and nose normal, oropharynx normal Neck: trachea midline, no thyromegaly normal visual inspection Respiratory: normal respiratory effort, lungs clear to auscultation no respiratory distress Cardiovascular: RRR, no murmur, no edema Gastrointestinal (Abdomen): Inspection/Auscultation: abdomen normal to inspection; abdomen not distended Musculoskeletal: no cyanosis or clubbing, extremities motor strength 5/5 Skin: no rashes, warm and dry Neurologic: moves all extremities and awake Psychiatric: Orientation: alert, oriented to person and cooperative Results & Data Results & Data ([facility]) Vital Signs (Past 12 Hours) Vital Signs Temp Pulse Pulse Resp BP Pulse Ox 11/12/19 10:16 82 11/12/19 07:20 36.9 C 50 L 19 160/77 H 92 11/12/19 04:31 153/72 H 11/12/19 03:44 36.3 C L 56 L 19 184/75 H 92 11/12/19 00:00 47 L 11/11/19 23:50 37.0 C 54 L 18 154/77 H 92 PG Care Time/CCT Total # of Minutes Spent Total Time Spent with Patient: Total time spent is greater than 50% in coordination of care (as documented) at patient's floor/unit and/or counseling patient: Coding Level of Care Code 54277 Subs Hosp Care Lvl 3 Diagnoses Chest pain R07.2 Chest pain type: precordial pain Time Spent (min) 35 (1) Chest pain Chest pain type: precordial pain Qualified Code(s): R07.2 - Precordial pain
[2019-11-12] MEDS ORDERED: NiCARDipine HCL INJ 2.5 MG/ML 10 ML AMP ONE (13:16)
[2019-11-12] MEDS ORDERED: HEPARIN (PORCINE) 1000 UNIT/ML 10 ML (CATH LAB USE ONLY) ONE (13:16)
[2019-11-12] MEDS ORDERED: fentaNYL citrate 100 MCG/2 ML VIAL ONE (13:17)
[2019-11-12] MEDS ORDERED: MIDAZOLAM HCL 1 MG/ML 2ML VIAL ONE (13:17)
[2019-11-12] MEDS ORDERED: NITROGLYCERIN/D5W 100MCG/ML 20ML SYR ONE (13:18)
[2019-11-12] MEDS ORDERED: ONDANSETRON INJ 2 MG/ML 2 ML VIAL ONE (13:40)
[2019-11-12] MEDS ORDERED: CLOPIDOGREL BISULFATE 300 MG TAB ONE (14:38)
--- NOTE | 2019-11-12 14:51 | Cardiology Consultation ---
Date of Consultation November 12, 2019 Assessment & Plan (1) Angina pectoris, unstable: Patient with typical angina, EKG changes concerning for acute coronary syndrome. Agree with proceeding with cardiac catheterization via right radial artery. Discussed procedure including risks, benefits, alternatives with patient and she is willing to proceed. Patient pretreated for dye allergy. History of Present Illness Attending Physician: Fernando Aiken History of Present Illness Mrs. Witt is a very pleasant 74-year-old woman with a history of hypertension, dyslipidemia, hypothyroidism, fibromyalgia, Raynaud's disease who was admitted with unstable angina. Patient has been having worsening exertional chest pain over the last several weeks. On presentation the ED had anterolateral ST depressions on EKG resolved with nitroglycerin. Serial troponins negative. Resting echocardiogram showed preserved LV function with no wall motion abnormalities. Allergies Allergy/AdvReac Type Severity Reaction Status Date / Time Iodinated Contrast Media Allergy Mild Hives Verified 11/10/19 18:25 iodine Allergy Mild Hives Verified 11/10/19 18:25 Home Medications Home Medications Medication Instructions Recorded Confirmed Type clonidine HCl 0.1 mg PO BID 05/22/19 11/10/19 History hydrocodone-acetaminophen 0.5 - 1 tab PO BID PRN 05/22/19 11/10/19 History levothyroxine 25 mcg PO QAM 05/22/19 11/10/19 History lorazepam 1 mg PO TID PRN 05/22/19 11/10/19 History acyclovir 400 mg PO BID PRN 11/10/19 11/10/19 History azelastine 2 spray INTRANASAL BID 11/10/19 11/10/19 History ciprofloxacin HCl 250 mg PO BID 11/10/19 11/10/19 History ergocalciferol (vitamin D2) 50,000 unit PO 2XWK 11/10/19 11/10/19 History Patient History Medical History History of Raynaud's syndrome Surgical History No pertinent past surgical history Social History Preferred Language: Kyrgyz Beliefs That Will Affect Care: None Current Living Situation: Alone Feels Safe at Home: Yes Safety Concerns: Feels Safe At This Time Smoking Status: Former smoker Do You Dip or Chew Tobacco: No ; Hx Alcohol Use: Yes Hx Substance Use: No Review of Systems Review of Systems: All systems reviewed & are unremarkable except as noted in HPI & below Physical Exam Physical Exam: General: Comfortable, no acute distress HEENT: Sclerae anicteric, mucous membranes moist Lungs: Clear to auscultation bilaterally, no rhonchi or wheezes Cardiac: Regular rate and rhythm, no murmurs. No JVD. Abdomen: Soft, nontender, nondistended, positive bowel sounds. Extremities: Warm, well perfused, no edema. 2+ radial pulses Skin: No rashes or lesions. Neuro: Nonfocal Psych: Alert orient x3, normal affect and mood Results & Data ([facility]) Vital Signs (Past 12 Hours) Vital Signs Temp Pulse Pulse Resp BP Pulse Ox 11/12/19 12:30 55 L 18 166/82 H 91 11/12/19 11:54 97.9 F 58 L 19 145/84 H 94 11/12/19 10:16 82 11/12/19 07:20 98.4 F 50 L 19 160/77 H 92 11/12/19 04:31 153/72 H 11/12/19 03:44 97.3 F L 56 L 19 184/75 H 92 PG Care Time/CCT Total # of Minutes Spent Total Time Spent with Patient: Total time spent is greater than 50% in coordination of care (as documented) at patient's floor/unit and/or counseling patient: Coding Level of Care Code 23127 Inpt Consult Level 3 Diagnoses Angina pectoris, unstable I20.0
--- NOTE | 2019-11-12 14:51 | Pre Anesthesia Assessment ---
Date of Service November 12, 2019 Pre Sedation Assessment Vital Signs Temp Pulse Pulse Resp BP Pulse Ox 11/12/19 12:30 55 L 18 166/82 H 91 11/12/19 11:54 97.9 F 58 L 19 145/84 H 94 11/12/19 10:16 82 11/12/19 07:20 98.4 F 50 L 19 160/77 H 92 11/12/19 04:31 153/72 H 11/12/19 03:44 97.3 F L 56 L 19 184/75 H 92 11/12/19 00:00 47 L 11/11/19 23:50 98.6 F 54 L 18 154/77 H 92 11/11/19 19:34 98.8 F 62 19 152/71 H 92 11/11/19 15:22 98.4 F 51 L 17 137/76 90 Cardiovascular RRR, no murmur, no edema Respiratory normal respiratory effort, lungs clear to auscultation Pre-Sedation Airway Assessment Smoking Status: Former smoker Hx Sleep Apnea: No Hx Difficult Intubation: No Short, Thick Neck: No Thyromental Distance: > or= 3.5 Finger Breadths Oral Cavity: + WNL Mallampati Class: II ASA: ASA2 NPO Status Date of Last Intake of Fluids: 11/12/19 Time of Last Intake of Fluids: 09:00 Date of Last Intake of Solid Food: 11/11/19 Time of Last Intake of Solid Foods: 23:30 Procedure Planning Contraindications for Sedation: none Current Medications Reviewed: Yes Notes The planned sedation has been discussed with the patient. Informed Consent was obtained. I have identified the patient, determined the appropriateness of sedation and have assessed the patient immediately prior to the procedure. All medicine(s) and interventions are by my order.
--- NOTE | 2019-11-12 14:52 | Post Anesthesia Assessment ---
Date of Service November 12, 2019 Post Sedation Assessment Vital Signs Temp Pulse Pulse Resp BP Pulse Ox 11/12/19 12:30 55 L 18 166/82 H 91 11/12/19 11:54 97.9 F 58 L 19 145/84 H 94 11/12/19 10:16 82 11/12/19 07:20 98.4 F 50 L 19 160/77 H 92 11/12/19 04:31 153/72 H 11/12/19 03:44 97.3 F L 56 L 19 184/75 H 11/12/19 00:00 47 L 11/11/19 23:50 98.6 F 54 L 18 154/77 H 92 11/11/19 19:34 98.8 F 62 19 152/71 H 92 11/11/19 15:22 98.4 F 51 L 17 137/76 90 Recovery Score Activity: Moves 4 extremities Respiration: Deep Breath/Cough Circulation: +/-20% PreAnes Value Consciousness: Fully Awake Oxygen Saturation: O2 needed for >90% Discharge Sedation Level of Care: Fast Track Phase II Post Sedation Plan On clinical assessment, the patient appears to have tolerated the sedation without complications. Patient is recovering as anticipated. Patient will continue to be monitored by nursing and may be discharged when sedation discharge criteria are met per below protocol. Upon Completions of procedure up to 15 minutes continue every 5 minute vital signs and the P.A.R. score; then discharge to a Phase I or Fast Track to Phase II per the following guidelines: * Discharge Patient to appropriate Phase II area if PAR is 8 or greater or return to pre- procedure baseline. The post - procedure orders will be as directed. * If PAR score is less than 8 or not return to pre-procedure baseline then patient will follow Phase I monitoring till PAR is reached for Phase II. The Phase I may be done in procedure room or may call to secure a Phase I area. * If naloxone or flumazenil are used for reversal, hold in Phase I for continued monitoring from when last reversal dose was given for a minimum of 60 minutes or longer pending the nurse and/or physician discretion of patient condition before discharge to Phase II. Please call the Sedation Physician to re-evaluate and complete post-note for discharge to Phase II area. Do NOT discharge from procedure sedation or Phase 1 until post- sedation evaluation note is complete by procedure /sedation MD Sedation Discharge Instructions to be given to the patient at discharge to home.
--- NOTE | 2019-11-12 14:59 | Cardiac Catheterization ---
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 Cardiac Status Clinical evaluation leading to the procedure CAD Presenation: Unstable angina Anginal Classification: CCS IV Heart Failure: No Cardiogenic Shock within 24 Hours: No Cardiac Arrest within 24 Hours: No Imaging Studies Past 6 Months: Yes Stress Studies Past 6 Months: No Diagnostic Physicians Name: Kojo Morales MD Status: Elective Closure Device Percutaneous Entry Location: Radial Closure Device: Radial Band Recommendations: PCI without planned CABG PCI Indication: Unstable Angina Lesion Segment Name: Mid LAD Culprit Artery: Yes Stenosis Prior to Rx (%): 95 Chronic Total Occlusion: No IVUS: No FFR: No Pre-Procedure PAPI Flow: 2 Previously Treated Lesion: No Lesion Complexity: Non-High/Non-C Lesion Length (mm): 15 Thrombus Present: Yes Bifurcation Lesion: No Guidewire Across Lesion: Stenosis Post-Procedure (%): 0 Post-Procedure PAPI Flow: 3 Devices(s) Deployed: Yes Yes Intraprocedure Events Significant Disection: No Perforation: No Cardiac Cath Procedure Full Procedure Date November 12, 2019 Pre-Procedure Diagnosis Pre-Procedure Diagnosis: Acute Coronary Syndrome AUC Score AUC Score: 8 Post-Procedure Diagnosis Post-Procedure Diagnosis: Severe CAD, Successful PCI and Normal Intracardiac Pressures Procedure(s) Performed Procedure(s) Performed: Coronary Angiography, Left Heart Cath and Drug Eluting Stent Gis Software Engineer Kojo Morales MD Textile Knitter(s) Avelina Estimated Blood Loss Estimated Blood Loss: 15 Medication(s) Medication(s): Clopidogrel, Fentanyl, Heparin, Lidocaine 1%, Nicardipine, Nitroglycerin and Versed Summary of Findings Indication: Acute coronary syndrome Access: 6 Fr right radial artery slender Catheters: Floyd, EBU 3.5 guide Findings: LM -long vessel, medium caliber, angiographically normal LAD -medium caliber vessel, proximal luminal irregularities, 95% acute mid LAD stenosis, distal vessel with luminal regularities as wraps around apex. Small second diagonal with 30% proximal disease. Circumflex -medium caliber vessel, mild diffuse mid to distal disease up to 30%. RCA -medium caliber vessel, dominant, mildly calcified, diffuse 30 to 40% proximal to mid disease. 30 to 40% distal disease at bifurcation with PDA extending into right posterior AV branch. LVEDP -16 -- PCI -- Antithrombotic therapy: Heparin, clopidogrel Procedure: Left main cannulated with EBU 3.5 guide Newspaper Columnist 50 wire passed across lesion into distal vessel Mid LAD lesion predilated with 2.5 compliant balloon Dilated lesion stented with 3.0 x 22 mm [place] drug-eluting stent Stent post-dilated with 3.5 noncompliant balloon IC vasodilators administered for spasm Post procedure PAPI 3 flow, stent well expanded with minimal residual stenosis and no apparent cardiac complications. Arterial Closure: TR band Summary: 1. Severe single vessel coronary artery disease -95% acute mid LAD 2. Normal intracardiac filling pressure 3. 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 Any exceptions are noted below. [facility] Card Cath Procedure Codes Cardiac Catheterization Procedure 1: Cardiovascular Cath Procedures: 88990 Coronaries and LHC (+/-LV) Moderate Sedation Procedure 1: Sedation/Anesthesia: 01958 Mod Sedation by the same physician;Init15 Min Child Age 5 & Up Procedure 2: Sedation/Anesthesia: 50185 Mod Sedation by the same physician; Ea Artis [id number] Minutes Stenting Procedure 1: Cardiovascular Stent Procedures: 26230 Perc transcatheter placement of intracoronary stent(s), with ang PG Care Time/CCT Total # of Minutes Spent Total Time Spent with Patient: Total time spent is greater than 50% in coordination of care (as documented) at patient's floor/unit and/or counseling patient:
[2019-11-12] MEDS ORDERED: SODIUM CHLORIDE 0.9% 1000ML 1,000 ML IV SCH (15:45)
[2019-11-12] MEDS: HEPARIN SODIUM/DEXTROSE 25,000 UNITS/500 ML BAG IV SCH (15:53)
[2019-11-13] MEDS: LEVOTHYROXINE SODIUM 25 MCG TABLET PO SCH (05:54)
[2019-11-13 07:52] LABS: Basophils # (auto) 0.01 K/uL (0-0.2); Basophils % (auto) 0.1 %; Eosinophils # (auto) 0.01 K/uL (0-0.5); Eosinophils % (auto) 0.1 %; Hemoglobin 12.8 g/dL (12.0-16.0); Immature Granulocytes # (auto) 0.04 K/uL (0.00-0.02); Immature Granulocytes % (auto) 0.3 %; Lymphocytes # (auto) 3.91 K/uL (1.2-3.4); Lymphocytes % (auto) 30.5 %; Mean Corpuscular Hemoglobin 29.8 pg (25-34); Mean Corpuscular Hgb Conc 33.7 g/dL (32-36); Mean Corpuscular Volume 88.4 fL (80-100); Mean Platelet Volume 10.6 fL (7.4-10.4); Monocytes # (auto) 0.91 K/uL (0.11-0.59); Monocytes % (auto) 7.1 %; Neutrophils # (auto) 7.92 K/uL (1.4-6.5); Neutrophils % (auto) 61.9 %; Platelet Count 208 K/uL (130-400); RDW Coefficient of Variation 14.9 % (11.5-14.5); RDW Standard Deviation 47.8 fL (36.4-46.3)
[2019-11-13 08:26] LABS: BUN Creatinine Ratio 20.8 (10-20); Calcium 9.2 mg/dl (8.5-10.1); Creatinine Clr Calc Pharmacy 67.9 ml/min; Est GFR (African American) 89.6; Est GFR (Non-African American) 77.3; Potassium 3.8 mmol/L (3.5-5.1)
[2019-11-13] MEDS ORDERED: FUROSEMIDE 20 MG TAB PO ONE (08:40)
--- NOTE | 2019-11-13 08:46 | Cardiology Progress Note ---
Date of Service November 13, 2019 Subjective Feels better, mild SOB in long sentences, no angina, no palps no dizziness, eating, up to bathroom w/o sx's Results & Data Vital Signs (Past 12 Hours) Vital Signs Temp Pulse Pulse Resp BP BP Pulse Ox 11/13/19 07:40 36.6 C 49 L 167/72 H 18 L 11/13/19 04:00 36.4 C L 50 L 17 132/64 96 11/12/19 23:35 36.8 C 71 18 155/66 H 94 11/12/19 23:18 74 11/12/19 23:15 36.4 C L 66 18 132/66 92 She is awake alert and oriented x3 she is in no acute distress she is anxious. HEENT: 2+ carotid upstrokes, no evidence of carotid bruits, jugular venous pressure was normal. Sclera was anicteric. Hearing was normal .Lungs: Clear to auscultation bilaterally no rales rhonchi wheezing Heart: regular rate and rhythm no appreciable murmurs rubs or gallops Abdomen: soft nontender nondistended positive bowel sounds Extremities: no clubbing cyanosis or edema, 2+ right radial pulse Psychiatric: Her affect appeared appropriate Assessment & Plan (1) Unstable Angina -- s/p RADHA to mid LAD ambulate if ok D/c Cardiac rehab ASA Plavix x 1 year -- discussed if need to stop plavix for any reason in next year to contact us Toprol 12.5 QHS Losartan 25 mg daily Pravastatin 10mg daily with Co Q 10 200mg daily (intolerant of statins in past) Lasix 20mg x 1 now secondary to IVF yesterday Will arrange for f/u in 10-14 days (2) Normal LV fxn (3) Hyperlipidemia (4) Very strong Family Hx premature CAD (5) HTN
[2019-11-13] MEDS ORDERED: CLOPIDOGREL BISULFATE 75 MG TAB PO SCH (09:00)
[2019-11-13] MEDS ORDERED: LOSARTAN POTASSIUM 25 MG TAB PO SCH (09:00)
[2019-11-13] MEDS ORDERED: ATORVASTATIN 40 MG TAB PO SCH (09:00)
[2019-11-13] MEDS: ASPIRIN 81 MG ECTAB PO SCH (09:47)
[2019-11-13] MEDS: FAMOTIDINE 40 MG TABLET PO SCH (09:48)
[2019-11-13] MEDS: CIPROFLOXACIN 250 MG TAB PO SCH (09:48)
[2019-11-13 11:22] LABS: Appearance Urine Clear (Clear); Bilirubin Urine Negative (Negative); Blood Urine Negative (Negative); Color Urine Yellow; Glucose Urine UA Negative (Negative); Ketones Urine Negative (Negative); Leukocyte Esterase Urine Negative (Negative); Nitrite Urine Negative (Negative); Protein Urine Negative (Negative); Urobilinogen Urine Negative (Negative)
[2019-11-13] MEDS ORDERED: PRAVASTATIN SOD 10 MG TAB PO SCH (17:00)
[2019-11-13] MEDS ORDERED: METOPROLOL SUCC 25MG EXT REL TAB PO SCH (21:00)
[2019-11-15 12:26] LABS: Renin Activity 0.2 ng/mL/h (0.25-5.82)
--- NOTE | 2019-11-19 08:11 | Discharge Summary ---
Date of Service November 13, 2019 Admission HPI Per Admitting Provider Pt is a 74yo female with a PMHx of HTN, HLD currently not on statin, hypothyroidism and fibromyalgia who presents with 10/10 chest pain responsive to nitro administration. States this has been happening for the past week, off and on. Describes the pain as both pressure-like and sharp. Radiates up her neck to her jaw and ears and to her back. Some SOB/chest tightness. No associated N/V or diaphoresis. Had an episode of significant chest pain 5 days ago after carrying grocery bags up to the second floor where she lives. Noted a BP of 194/112, took some clonidine and it decreased to 94/54. Called her PCP and wa able to get an appt with steam shovel operating engineer Dr. Hood for November 25 for a stress test. Also, notes today 8/10 pain while walking after a doctors appointment for a UTI, at [facility]. She then sat in her car, ate chicken, sushi and drank iced tea but it did not help. She then took a [place], a dose of Ativan, 2 baby aspirins and her clonidine, all with no relief. So she came to the ED where the pain increased in intensity once more on arrival. Associated with a headache. FAM Hx: -HTN in brother, aunts and uncles espeically on maternal side -WA in mother and brothers. Mother had open heart surgery at age 52. -Diabetes in 2 brothers SH: -smoked for about 10 years early in her life, 1/2ppd at her heaviest. Stopped in 1973. social alcohol use, no recreational drug use. Rarely exercises and diet "is not the best. No kitchen for 6 years". Principal Diagnosis UNSTABLE ANGINA Discharge Exam Constitutional: WD/WN, vitals as above Eyes: EOM intact bilaterally; no conjunctival abnormality ENMT: external ear and nose normal, oropharynx normal Neck: trachea midline, no thyromegaly normal visual inspection Respiratory: normal respiratory effort, lungs clear to auscultation no respiratory distress Cardiovascular: RRR, no murmur, no edema Gastrointestinal (Abdomen): Inspection/Auscultation: abdomen normal to inspection; abdomen not distended Musculoskeletal: no cyanosis or clubbing, extremities motor strength 5/5 Skin: no rashes, warm and dry Neurologic: moves all extremities and awake Psychiatric: Orientation: alert, oriented to person and cooperative Discharge Data Allergies Allergy/AdvReac Type Severity Reaction Status Date / Time Iodinated Contrast Media Allergy Mild Hives Verified 11/10/19 18:25 iodine Allergy Mild Hives Verified 11/10/19 18:25 Consultations 11/10/19 19:34 ED Decision to Admit Stat 11/10/19 20:59 Consult Cardiology Routine 11/11/19 12:41 Consult Cardiac Catheterization Routine 11/12/19 15:41 Consult Cardiac Rehabilitation Routine Procedures Performed Operation Date: 11/12/19 12:30 Actual Procedures p Cath, Left with Cors and Vent - Ag Morales MD s Drug Eluting Stent SGl Vessel - Ag Morales MD s Cineradiography w/Routine Exam - Ag Morales MD Ordered Studies 11/12/19 07:08 CL Cath Imgs for PACS use only Routine Hospital Course (1) Chest pain: Pt is a 74yo female with a PMHx of HTN, HLD currently not on statin, hypothyroidism and fibromyalgia who presents with unstable angina. Unstable Angina Agree with cardiac input: Patient ambulated well. -s/p RADHA to mid LAD Cardiac rehab ASA Plavix x 1 year -- discussed if need to stop plavix for any reason in next year to contact us Toprol 12.5 QHS Losartan 25 mg daily Pravastatin 10mg daily with Co Q 10 200mg daily (intolerant of statins in past) Lasix 20mg x 1 now secondary to IVF yesterday Will arrange for f/u in 10-14 days (2) HTN (hypertension): hold clonidine. - BP at goal. - Continue beta-keeley - Consider ACEi/ARB depending on cath findings (3) UTI (urinary tract infection): PCP started her on Cipro for UTI symptoms. Had not even taken first dose prior to coming to the ER. - Continue Cipro x 3 days for UTI (Last dose: 11/12 morning dose) (4) Hypothyroidism: - Check TSH is low. - Continue home Synthroid 25 mcg daily, will likely need to titrate down. Total Time Total Time Spent Total Time Spent (In Minutes): 35 Total Time Includes: Examination of the Patient, Discharge Planning, Medication Reconciliation and Communication With Other Providers Discharge Plan Discharge Items Patient Disposition: Home - Self-Care Reason For Visit: UNSTABLE ANGINA Discharge Diagnosis: unstable angina Activity: Resume your previous activity Non-emergency contact: Primary Care Provider Call non-emergency contact if: you have any medication questions Follow-up/Referrals: Slim Spears MD [Resident] - 11/16/19 10:10 am Diet: Heart Healthy Addtl Attending Provider Instructions: Home Care: * Take your medications exactly as directed. Don't skip doses. * Remember that recovery after a heart attack takes time. Plan to rest for at lease 4-8 weeks while you recover. Then return to normal activity when your doctor says it's okay. * Ask your doctor about joining a heart rehabilitation program. * Tell your doctor if you are feeling depressed. Feelings of sadness are common after a heart attack, but it is important that you speak to someone if you are feeling overwhelmed by these feelings. * If you are having chest pain, call 911 for an ambulance. Do NOT drive yourself to the hospital. * Ask your family members to learn CPR. * Learn to take your own blood pressure and pulse. Keep a record of your results. Ask your doctor when you should seek emergency medical attention. He or she will tell you which blood pressure reading is dangerous. Lifestyle Changes: * Maintain a healthy weight. Get help to lose any extra pounds. * Cut back on salt. * Limit canned, dried, packaged, and fast foods. * Don't add salt to your food. * Season foods with herbs instead of salt when you cook. * Break the smoking habit. Enroll in a stop-smoking program to improve your chances of success. * Limit fatty foods. * Ask your doctor about having your lipid levels checked regularly. * Build up your activity according to your doctor's recommendation. * Ask your doctor when it's okay to resume sexual activity. * Tell your doctor about any erectile dysfunction (ED) medication you are taking. Some ED medications are not safe if you take certain heart medications. * Try to manage stress. Follow Up: It is important for you to keep your follow up appointments with your medical provider. Pending Studies at Discharge: No Stand-Alone Forms: My [email or web address], Smoking Cessation Medications and DC Order Prescriptions: New clopidogrel 75 mg Tablet 75 mg PO QAM Qty: 30 RF: 0 aspirin 81 mg Tablet,Delayed Release (Dr/Ec) 81 mg PO DAILY Qty: 30 RF: 0 pravastatin 10 mg Tablet 10 mg PO DAILY@1700 Qty: 30 RF: 0 losartan 25 mg Tablet 25 mg PO QAM Qty: 30 RF: 0 metoprolol succinate 25 mg Tablet Extended Release 24 Hr 12.5 mg PO QPM Qty: 30 RF: 0 coenzyme Q10 [CoQ-10] 100 mg capsule 200 mg PO DAILY Qty: 60 RF: 0 Continued hydrocodone-acetaminophen 10-325 mg tablet 0.5 - 1 tab PO BID PRN (Reason: Pain) RF: 0 levothyroxine 25 mcg tablet 25 mcg PO QAM RF: 0 lorazepam 1 mg tablet 1 mg PO TID PRN (Reason: Anxiety) RF: 0 acyclovir 400 mg tablet 400 mg PO BID PRN (Reason: Cold Sore(s)) RF: 0 ergocalciferol (vitamin D2) 1,250 mcg (50,000 unit) capsule 50,000 unit PO 2XWK RF: 0 azelastine 137 mcg (0.1 %) Aerosol,[place] 2 spray INTRANASAL BID RF: 0 Discontinued clonidine HCl 0.1 mg tablet 0.1 mg PO BID RF: 0 ciprofloxacin HCl 250 mg tablet 250 mg PO BID RF: 0 Discharge Orders: Discharge Order (Routine); Ordered 11/13/19 Ordered By: Fernando Mccrary/Other Patient Handouts: Coronary Stents, Cardiac Catheterization Dc, Pravastatin tablets, Clopidogrel tablets, Metoprolol tablets, Co-Enzyme Q10 oral dosage forms, Losartan tablets, Aspirin ASA oral tablets, A1C Admission Data Admit Date/Time: 11/10/19 20:53 Attending Provider: Fernando Aiken Admit Provider: Mayuri Bal Primary Care Provider: Ector Brownlee Other Providers: Sabas Harley ; Patel Fuller ; Ag Morales Other Interventions: Discharge Summary Assessment (RN) Last Done: 11/13/19 14:27 DC Date/Time DO NOT enter until pt leaves facility: 11/13/19 16:17 Coding Level of Care Code D/C Day Management >30 mins Diagnoses Chest pain R07.2 Chest pain type: precordial pain
== END 2019-11-13 16:17 | disposition home or self-care (01) | DRG 247 ==
LOC: ED 17:31 → 2S 20:53 → SUATTDRO 20:53 → 2S 21:06